=== PATIENT | female | born 1985 | race Caucasian/White ===

== ENCOUNTER 2016-03-28 05:47 | Inpatient (IN) | payer OTHER ==
--- NOTE | 2016-03-27 20:35 | History & Physical ---
General Information and HPI MD Statement: I have seen and personally examined WAYNE FERRELL and documented this H&P. The patient is a 30 year old female at 39[] weeks and [] days gestation who presented with a chief complaint of [repeat ]. History of Present Illness: This patient is a 30-year-old 2 para 1 LMP 06/27/2015 EDC 04/02/2016 at 39 weeks and 2 days presentation presents to labor and delivery for planned elective repeat section. care has been complete and remarkable for previous and previous desired to deliver vaginally. The patient has a history of anxiety asthma and polycystic ovaries and depression. 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 EENTM: Reports: no symptoms. Cardiovascular: Reports: no symptoms. Respiratory: Reports: no symptoms. GI: Reports: no symptoms. Genitourinary: Reports: no symptoms. Musculoskeletal: Reports: no symptoms. Skin: Reports: no symptoms. Neurological/Psychological: Reports: no symptoms. Hematologic/Endocrine: Reports: no symptoms. Immunologic/Allergic: Reports: no symptoms. All Other Systems: Reviewed and Negative Exam & Diagnostic Data Obstetric Exam Wgt Gained During : 35 Pelvimetry: Gynecoid Dilation (cm): 0 Effacement (%): 0 Station: 0 Membranes: intact Fluid: unknown Fundal Height (cm): 41 Multiple Gestation? No Contractions: None #1 - FHR Baseline: 125 Category: 1 Estimated Weight: 8 pounds Presentation: Breech Patient for Induction? No Labs Blood Type & Rh: A positive Antibody Screen: Negative Hct/Hgb & Platelets #1: 35, 12, 264 Hct/Hgb & Platelets #2: 33, 11, 306 Rubella: Immune VDRL #1: Nonreactive VDRL #2: Nonreactive HbsAg: Negative HIV #1: Negative HIV #2 Negative 1 Hr P Group B Strep: Negative Initial Ultrasound: Within normal limits Anatomy Ultrasound: Within normal limits Ultrasound for EFW: 6.5 Genetic Testing: Negative Assessment/Plan Assessment/Plan: 39 week previous Repeat As Ranked By This Provider Problem List: 1. Previous section Core Measures/Miscellaneous Donato Catheter Date In: 03/28/16 Still Needed? Yes Venous Thromboembolism VTE Risk Factors: Obesity, /, Surgery VTE Contraindications: No Contraindications VTE Prophylaxis Ordered Inpt: Mech/Pharm Contraindicate VTE Diagnosis: No Beta Tiffanie Is Beta Tiffanie a Home Med? No Antibiotics Is Patient on Antibiotics? Yes If Yes: prophylaxis
[~2016-03-28] VITALS: Ht 167.6 cm; Wt 97.5 kg
[~2016-03-28 05:47] MED LIST: ADDERALL20 MG PO; ALBUTEROL2.5 MG/3 M INH/SOL; AMOXICILLIN500 M3 PO; HYCET 325 MG/1473 ML PO; KEFLEX250 MG PO; LOVENOX 4040 MG/0.4 SC; MAGNESIUM400 M1 PO; PROAIR HFA0.09 MG/Ac INH; PROAIR HFA8.5 GM INH; PROTONIX 40MG T40 MG PO; WELLBUTRIN100 M1 PO
[2016-03-28 06:15] VITALS: BP 106/61
[2016-03-29 10:49] LABS: ABSOLUTE BASOPHIL COUNT 0 /CUMM (0.0-0.2); ABSOLUTE EOSINOPHIL COUNT 0.2 /CUMM (0.0-0.7); ABSOLUTE GRANULOCYTE CT 7.8 /CUMM (1.4-6.5); ABSOLUTE LYMPH COUNT 1.8 /CUMM (1.2-3.4); ABSOLUTE MONOCYTE COUNT 0.5 /CUMM (0.10-0.60); BASOPHIL % 0.3 % (0.0-2.0); EOSINOPHIL % 1.8 % (0-5); GRANULOCYTE % 76.1 % (42.2-75.2); HEMATOCRIT 28.4 % (37-47); MEAN CORPUSCULAR HGB 28.2 PG (27.0-31.0); MEAN CORPUSCULAR HGB CONC 32.6 G/DL (33.0-37.0); MEAN CORPUSCULAR VOLUME 86.4 FL (81.0-99.0); MEAN PLATELET VOLUME 9.9 FL (7.4-10.4); PLATELET COUNT 197 /CUMM (130-400); RBC DISTRIBUTION WIDTH 14.1 % (11.5-14.5); RED BLOOD CELL CT 3.29 /CUMM (4.20-5.40); WHITE BLOOD CELL COUNT 10.3 /CUMM (4.8-10.8)
--- NOTE | 2016-03-29 11:14 | PN- Post Delivery/GYN ---
Subjective Subjective: no c/o Review of Systems: neg Objective Last 24 Hrs of Vital Signs/I&O incision c/d/i ext nt Assessment/Plan Assessment/Plan s/p rc/s pod1 stable cpm Problem List: 1. Previous section
[2016-03-31] MEDS ORDERED: OMEPRAZOLE20 M2 PO (08:41)
[2016-03-31] MEDS ORDERED: PERCOCET 5-3251 EACH PO (08:41)
[2016-03-31] MEDS ORDERED: IBUPROFEN800 M1 PO (08:41)
[2016-03-31] MEDS ORDERED: DOCUSATE SODIU100 M3 PO (08:41)
[2016-03-31] MEDS ORDERED: SERTRALINE HCL50 MG PO (08:41)
--- NOTE | 2016-03-31 09:23 | Operative Report ---
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 Betadine boots were placed and activated and the patient was repositioned into dorsal supine with a block under her right angling her onto her left. A Donato catheter was inserted into the bladder and drained clear urine. The abdomen was then prepped and draped in the usual sterile fashion and tested. A Pfannenstiel skin incision was made through the old scar and carried down to the layer of the fascia. The fascia was nicked in the midline and was extended bilaterally. The underlying rectus muscles are and sharply dissected off of the fascia. The peritoneal cavity was entered bluntly. A bladder blade was inserted to protect the bladder from the operative field. A bladder flap was created using the Metzenbaum scissors and this was placed behind the bladder blade. A low transverse uterine incision was made with the scalpel and the uterine cavity was entered bluntly with the back of the knife. A liveborn female was delivered atraumatically and handed off to the awaiting pediatricians who determine the weight and scores. The uterus was then exteriorized and it was wiped clean of all clot and tissue debris with a wet lap sponge. It was closed in 2 layers of 0 Polysorb, the second imbricating the first. The abdomen and pelvis were then copiously irrigated and the uterus was placed back into the abdominal cavity. The suture line was once again visualized and noted to be hemostatic. Rectus muscles were reapproximated using 2-0 Polysorb in an interrupted fashion. Fascia was reapproximated using 0 Polysorb in a running nonlocking fashion. Subcutaneous tissues were irrigated and coagulated for hemostasis where needed. 20 plain suture material was used in an interrupted fashion to reapproximate this layer. The skin was closed using 4-0 Biosyn in a subcuticular fashion. Steri-Strips were placed and a dry sterile dressing was applied to the wound. The fundus was expressed. The patient was then transferred to the stretcher and taken to the recovery room in satisfactory condition. All needle, sponge, and instrument counts were correct at the end of the procedure 2.
--- NOTE | 2016-03-31 09:25 | Surgical Discharge Summary ---
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 Significant Other Services at Home: None What is Your Primary Language? [place] Review of Systems: Negative Hospital Course Course Attending Physician: CINDY PEREZ MD Primary Care Physician: ROB BRUMFIELD DO [facility] Course: The patient was admitted and underwent a repeat section without complication. She was sent to recovery in good condition. On postoperative day #1 she was without complaint. Her vital signs are stable and she was afebrile. Her Donato was discontinued and her diet was advanced and her activity was increased. Rest feeding well with her infant. On postoperative day #2 the patient continued to do do well and was passing flatus and tolerating a regular diet. On postoperative day #3 she was discharged home. Allergies: Coded Allergies: NO KNOWN ALLERGIES (NO) (07/01/10) Disposition Summary Disposition Principal Diagnosis: Previous Additional Diagnosis: Status post repeat Discharge Disposition: home or self care Discharge Instructions General Discharge Information Code Status: Full Code Patient's Diet: Regular Patient's Activity: Weight restrictions and pelvic rest Follow-Up Instructions/Appts: 4 days for incision check Medications at Discharge Discharge Medications: Stop taking the following medications: Amoxicillin (Amoxicillin) 500 MG TABLET ORAL TWICE DAILY Qty = 14 Continue taking these medications: Magnesium Oxide (Magnesium) 400 MG CAPSULE 1 Capsule ORAL DAILY Qty = 30 Albuterol Sulfate (Proair Hfa) 90 MCG HFA.AER.AD 2 Puff Inhale through mouth EVERY 4-6 HOURS NEEDED as needed for wheezing Qty = 1 Albuterol Sulfate (Albuterol Sulfate) 2.5 MG/3 ML (0.083 %) VIAL.NEB 1 Vial Inhale Solution EVERY 4 HOURS NEEDED as needed for wheezing Qty = 50 Start taking the following new medications: Ibuprofen (Ibuprofen) 800 MG TABLET 800 Milligram ORAL EVERY SIX HOURS NEEDED as needed for UTERINE CRAMPING Qty = 30 No Refills Comments: Last Taken:03/31/2016 Time:0600 Oxycodone HCl/Acetaminophen (Percocet 5-325 MG Tablet) 5 MG-325 MG TABLET 1 Tablet ORAL EVERY 4 HOURS NEEDED as needed for PAIN SCALE 4-6 (MODERATE ) Qty = 24 No Refills Comments: Last Taken:03/31/16 Time:0600 Sertraline HCl (Sertraline HCl) 50 MG TABLET 50 Milligram ORAL DAILY Qty = 90 No Refills Docusate Sodium (Docusate Sodium) 100 MG CAPSULE 100 Milligram ORAL AT BEDTIME as needed for STOOL SOFTENER Qty = 60 No Refills Omeprazole (Omeprazole) 20 MG CAPSULE.DR 20 Milligram ORAL DAILY BEFORE BREAKFAST Qty = 30 No Refills Comments: Last Take:03/31/2016 Time:0745
== END 2016-03-31 10:26 | DRG 540 ==
LOC: GNO 05:47
PROVIDERS: ADMIT Obstetrics & Gynecology
PROC: 10D00Z1 Extraction of Products of Conception, Low, Open Approach (ICD-10-PCS; principal; 2016-03-28)
DX: O34.211 Maternal care for low transverse scar from previous cesarean delivery (principal); N85.8 Other specified noninflammatory disorders of uterus; Z3A.39 39 weeks gestation of pregnancy; Z37.0 Single live birth
CPT/HCPCS: GNOS; 81001; 87086; 87389; J0690; J1650; J1885; J3490